=== PATIENT | female | born 1990 | race African-American/Black ===

== ENCOUNTER 2019-09-06 00:02 | Emergency (ER) | payer OTHER ==
[~2019-09-06] VITALS: Ht 162.6 cm; Wt 55.0 kg
[2019-09-06] MEDS ORDERED: ONDANSETRON 4MG ODT PO ONE (03:45)
[2019-09-06 03:48] VITALS: BP 106/70
== END 2019-09-06 03:57 | disposition home or self-care (01) ==
LOC: ER 00:02
DX: R11.2 Nausea with vomiting, unspecified (principal); R19.7 Diarrhea, unspecified
CPT/HCPCS: 99283; Q0162

== ENCOUNTER 2019-12-15 11:43 | Emergency (ER) | payer MEDICAID, OTHER ==
[~2019-12-15] VITALS: Ht 157.5 cm; Wt 70.0 kg
[2019-12-15] MEDS ORDERED: ACETAMINOPHEN 325MG TABLET PO PRN (14:00)
[2019-12-15 15:13] LABS: CHLORIDE 108 mEq/L (98-107)
[2019-12-15 15:20] LABS: BASOPHILS % 0.6 % (0.0-2.0); EOSINOPHILS % 0.9 % (0.0-5.0); HEMATOCRIT. 36.6 % (36.0-48.0); HEMOGLOBIN. 12.4 g/dL (12.0-16.0); LYMPHOCYTES % 39.2 % (20.0-50.0); MEAN CORPUSCULAR HEMOGLOBIN 28.3 pg (28.0-32.0); MEAN CORPUSCULAR VOLUME 83.6 fL (81.0-99.0); MEAN PLATELET VOLUME 7.8 fl (7.4-10.4); MONOCYTES % 6.8 % (2.0-8.0); NEUTROPHILS % 52.5 % (40.0-76.0); PLATELET 232 x1000/uL (130-400); RED BLOOD CELL COUNT 4.38 mill/uL (4.2-5.4); RED CELL DISTRIBUTION WIDTH 13.6 % (11.6-14.6)
[2019-12-15 15:25] LABS: B-HCG QUANTITATIVE < 1 mIU/mL (<3)
[2019-12-15 18:17] VITALS: BP 110/76
== END 2019-12-15 18:19 | disposition home or self-care (01) ==
LOC: ER 11:43
DX: O03.9 Complete or unspecified spontaneous abortion without complication (principal)
CPT/HCPCS: 36415; 76830; 76856; 80053; 84702; 85025; 86850; 86900; 99285

== ENCOUNTER 2020-02-20 20:06 | Emergency (ER) | payer MEDICAID, OTHER ==
[~2020-02-20] VITALS: Ht 165.1 cm; Wt 59.0 kg
[2020-02-20] MEDS ORDERED: KETOROLAC 30MG/ML VIAL IM ONE (22:30)
[2020-02-20 23:24] VITALS: BP 111/76
== END 2020-02-20 23:31 | disposition home or self-care (01) ==
LOC: ER 20:06
DX: S90.31XA Contusion of right foot, initial encounter (principal); Y04.0XXA Assault by unarmed brawl or fight, initial encounter; Y93.89 Activity, other specified; Y92.89 Other specified places as the place of occurrence of the external cause
CPT/HCPCS: 73630; 81025; 96372; 99283; J1885

== ENCOUNTER 2021-09-25 16:19 | Emergency (ER) | payer MEDICAID, OTHER ==
[~2021-09-25] VITALS: Ht 165.1 cm; Wt 59.0 kg
[2021-09-25 17:24] LABS: CLARITY URINE CLEAR (CLEAR); COLOR URINE YELLOW (YELLOW); KETONES URINE NEGATIVE (NEGATIVE); LEUKOCYTE ESTERASE URINE NEGATIVE (NEGATIVE); NITRITE URINE NEGATIVE (NEGATIVE); OCCULT BLOOD URINE NEGATIVE (NEGATIVE); PROTEIN URINE NEGATIVE (NEGATIVE); UROBILINOGEN URINE 0.2 E.U./dL (0.2-1.0)
[2021-09-25] MEDS ORDERED: ONDANSETRON 4MG ODT PO ONE (18:15)
[2021-09-25] MEDS ORDERED: KETOROLAC 60MG/2ML VIAL IM ONE (18:15)
[2021-09-25] MEDS ORDERED: MORPHINE SULFATE 10 MG/ML CPJ IM ONE (18:15)
[2021-09-25] MEDS ORDERED: DEXAMETHASONE 10 MG/ML VIAL IM ONE (18:15)
[2021-09-25] MEDS ORDERED: HYDROCODONE/ACETAMINOPHEN 5/325MG TABLET PO ONE (20:30)
[2021-09-25 20:48] VITALS: BP 124/85
[2021-09-25] MEDS ORDERED: IBUP-2028 MT (21:16)
[2021-09-25] MEDS ORDERED: HYDR-4001 MT ×2 (21:16→21:29)
[2021-09-25] MEDS ORDERED: MED4 MT (21:16)
== END 2021-09-25 21:31 | disposition home or self-care (01) ==
LOC: ER 16:19
DX: M54.9 Dorsalgia, unspecified (principal); Z98.890 Other specified postprocedural states
CPT/HCPCS: 74176; 81003; 96372; 99284; J1100; J1885; J2270; Q0162

== ENCOUNTER 2021-11-25 22:21 | Emergency (ER) | payer MEDICAID, OTHER ==
[~2021-11-25] VITALS: Ht 167.6 cm; Wt 70.7 kg
[~2021-11-25 22:21] MED LIST: HYDR-4001 MT; IBUP-2028 MT; MED4 MT
[2021-11-25] MEDS ORDERED: ONDANSETRON HCL 4MG/2ML INJ IV STA (23:16)
[2021-11-25] MEDS ORDERED: KETOROLAC 30MG/ML VIAL IV STA (23:16)
[2021-11-25] MEDS ORDERED: SODIUM CHLORIDE 0.9% 1,000 ML IV ONE (23:30)
[2021-11-25] MEDS ORDERED: FAMOTIDINE 20MG/2ML VIAL IV ONE (23:30)
[2021-11-25] MEDS ORDERED: ACETAMINOPHEN 500MG TABLET PO ONE (23:30)
[2021-11-26 00:09] LABS: HEMATOCRIT. 34.4 % (36.0-48.0); HEMOGLOBIN. 11.7 g/dL (12.0-16.0); MEAN CORPUSCULAR HEMOGLOBIN 27.9 pg (28.0-32.0); MEAN CORPUSCULAR VOLUME 82.4 fL (81.0-99.0); PLATELET 223 x1000/uL (130-400); RED BLOOD CELL COUNT 4.17 mill/uL (4.2-5.4); RED CELL DISTRIBUTION WIDTH 13.5 % (11.6-14.6)
[2021-11-26 00:10] LABS: CLARITY URINE CLEAR (CLEAR); COLOR URINE YELLOW (YELLOW); KETONES URINE TRACE (NEGATIVE); LEUKOCYTE ESTERASE URINE NEGATIVE (NEGATIVE); NITRITE URINE NEGATIVE (NEGATIVE); OCCULT BLOOD URINE NEGATIVE (NEGATIVE); PH URINE 5.5 (4.5-8.0); PROTEIN URINE TRACE (NEGATIVE); SPECIFIC GRAVITY URINE 1.028 (1.005-1.030)
[2021-11-26 00:15] VITALS: BP 120/75
[2021-11-26 00:15] LABS: CHLORIDE 104 mEq/L (98-107)
[2021-11-26 00:18] LABS: *AMPHETAMINES SCREEN URINE NEGATIVE (NEGATIVE); *BARBITURATES SCREEN URINE NEGATIVE (NEGATIVE); *BENZODIAZEPINES SCREEN URINE NEGATIVE (NEGATIVE)
[2021-11-26 00:18] LABS: ETHANOL BLOOD < 10 mg/dL
[2021-11-26 00:19] LABS: *COCAINE SCREEN URINE NEGATIVE (NEGATIVE); CANNABINOID URINE SCREEN NEGATIVE (NEGATIVE); METHADONE URINE SCREEN NEGATIVE (NEGATIVE); OPIATES URINE SCREEN NEGATIVE (NEGATIVE); PHENCYCLIDINE URINE SCREEN NEGATIVE (NEGATIVE)
[2021-11-26 01:11] LABS: PLATELET ESTIMATE NORMAL
[2021-11-26] MEDS ORDERED: ONDA4TAB5 MT (01:28)
[2021-11-26] MEDS ORDERED: FAMO-135 MT (01:28)
[2021-11-26] MEDS ORDERED: ACET-2708 MT (01:28)
== END 2021-11-26 02:00 | disposition home or self-care (01) ==
LOC: ER 22:21
DX: R10.84 Generalized abdominal pain (principal); R11.2 Nausea with vomiting, unspecified; R19.7 Diarrhea, unspecified; Z98.890 Other specified postprocedural states; Z79.899 Other long term (current) drug therapy; Z20.822 Contact with and (suspected) exposure to COVID-19
CPT/HCPCS: 36415; 80053; 80305; 80320; 81003; 81025; 83690; 85025; 87426; 96361; 96374; 96375; 99284; J1885; J2405; J3490; J7030; G0480

== ENCOUNTER 2023-02-11 17:59 | Emergency (ER) | payer MEDICAID, OTHER ==
[~2023-02-11] VITALS: Ht 175.3 cm; Wt 69.0 kg
[~2023-02-11 17:59] MED LIST changes: +ACET-2708 MT; +FAMO-135 MT; +ONDA4TAB5 MT
[2023-02-11 18:10] VITALS: O2SAT 99
[2023-02-11] MEDS ORDERED: IBUPROFEN 600MG TABLET PO ONE (18:15)
[2023-02-11] MEDS ORDERED: IBUP-2028 MT (19:21)
[2023-02-11 20:44] VITALS: BP 118/80; PULSE 84; RESP 18; TEMP 98
== END 2023-02-11 20:44 | disposition home or self-care (01) ==
LOC: ER 17:59
DX: S43.121A Dislocation of right acromioclavicular joint, 100%-200% displacement, initial encounter (principal); Z98.890 Other specified postprocedural states; V49.9XXA Car occupant (driver) (passenger) injured in unspecified traffic accident, initial encounter; Y93.89 Activity, other specified; Y92.89 Other specified places as the place of occurrence of the external cause; Y99.8 Other external cause status
CPT/HCPCS: 29105; 73030; 73070; 73100; 73120; 99284; A4565